=== PATIENT | female | born 1970 | race African-American/Black ===

== ENCOUNTER 2016-11-04 03:50 | Emergency (ER) | payer OTHER ==
[~2016-11-04] VITALS: Ht 172.7 cm; Wt 59.0 kg
[2016-11-04 04:28] LABS: Basophils # (auto) 0 uL; Basophils % (auto) 0.7 % (0.0-2.0); CONDITION Y; Eosinophils # (auto) 0.2 uL; Eosinophils % (auto) 4.6 % (0.0-7.0); Hematocrit 36.3 % (36.0-46.0); Hemoglobin 12.2 g/dL (12.2-16.2); Lymphocytes # (auto) 0.9 uL; Lymphocytes % (auto) 21.4 % (10.0-50.0); Mean Corpuscular Hemoglobin 31.4 pg (28.0-32.0); Mean Corpuscular Hgb Conc. 33.7 g/dL (32.0-36.0); Mean Corpuscular Volume 93.2 fL (80.0-100.0); Mean Platelet Volume 7.9 fL (7.4-10.4); Monocytes # (auto) 0.3 uL; Monocytes % (auto) 7.5 % (0.0-12.0); Neutrophils # (auto) 2.7 uL; Neutrophils % (auto) 65.8 % (37.0-80.0); Nucleated Red Blood Cells % 2.2 %; Platelet Count (auto) 290 10^3/uL (140-450); Red Cell Distribution Width 13.2 % (11.6-16.0)
[2016-11-04 04:51] LABS: Calcium 8.4 mg/dL (8.5-10.1); Potassium 3.5 mmol/L (3.5-5.1)
[2016-11-04 04:54] LABS: Albumin 3.6 g/dL (3.4-5.0); BUN/Creatinine Ratio 23.5
[2016-11-04 04:57] LABS: Bilirubin, Total 0.3 mg/dL (0.2-1.0); Total Protein 7.5 g/dL (6.4-8.2)
[2016-11-04] MEDS ORDERED: LORazepam 2MG/ML-1ML VIAL IV ONE (05:45)
[2016-11-04] MEDS ORDERED: SODIUM CHLORIDE 0.9% 1,000 ML IV ONE (05:45)
[2016-11-04 07:22] VITALS: BP 117/67
== END 2016-11-04 08:16 | disposition home or self-care (01) ==
LOC: EDBD 03:50 → ER 03:50
DX: G40.909 Epilepsy, unspecified, not intractable, without status epilepticus (principal); Z86.73 Personal history of transient ischemic attack (TIA), and cerebral infarction without residual deficits; R42 Dizziness and giddiness; R53.1 Weakness; M54.2 Cervicalgia
CPT/HCPCS: 36415; 70450; 80053; 85025; 96361; 96374; 99285; J2060; J7030